=== PATIENT | female | born 1995 | race African-American/Black ===

== ENCOUNTER 2016-10-14 02:01 | Emergency (ER) | payer OTHER ==
[~2016-10-14] VITALS: Ht 154.9 cm; Wt 47.0 kg
[2016-10-14 02:15] VITALS: BP 129/75; PULSE 75; RESP 16; TEMP 98.3; O2SAT 98
--- NOTE | 2016-10-14 02:36 | PD ---
HPI Chief Complaint: Laceration/Skin Injury Time Seen by Provider: 02:31 Travel History International Travel<30 days: No Contact w/Intl Traveler<30days: No Traveled to known affect area: No History of Present Illness HPI 21-year-old [id number] black female presents to emergency department for evaluation of a right forearm laceration which occurred at work today sometime around 10 PM. She states that she fell with a glass mug in her head which broke. The glass lacerated her right forearm. She continued to work this evening and comes in after her shift ends. She is up-to-date with immunizations. Pain is minimal. She does not feel any foreign body. She is requesting repair of the laceration. She states that she feels is "deep". PFSH Past Medical History Medical History: Denies Significant Hx Tetanus Vaccination: < 5 Years ?: Not LMP: IUD Past Surgical History Surgical History: No Previous Surgery Social History Alcohol Use: Yes Tobacco Use: Yes Allergies-Medications (Allergen,Severity, Reaction): Coded Allergies: No Known Allergies (Unverified , 10/14/16) Review of Systems Except as stated in HPI: all other systems reviewed are Neg Physical Exam Narrative GENERAL: This is a well-nourished, well-developed patient, in no apparent distress. SKIN: No rashes, ecchymoses or lesions. Warm and dry. HEAD: Atraumatic. Normocephalic. EYES: PERRL, EOMI, no discharge or injection. No scleral icterus. EARS: Clear NOSE: Nasal turbinates appear normal. THROAT: Mucosa pink and moist. Airway patent. NECK: Trachea midline. supple, moves head freely. LUNGS: Clear to auscultation. CV: Regular in rhythm. ABDOMEN: Soft nontender. EXT: No clubbing cyanosis or edema. Patient has a 1 cm laceration to the volar mid right forearm. No palpable foreign body noted. No obvious wound infection. No deep injury. She moves her fingers freely. 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 Neurovascularly intact. Data Data Last Documented VS Vital Signs Date Time Temp Pulse Resp B/P Pulse Ox O2 Delivery O2 Flow Rate FiO2 10/14/16 02:15 98.3 75 16 129/75 98 Orders Forearm (2vws) (10/14/16 02:29) Cephalexin (Keflex) (10/14/16 03:30) [facility] Medical Decision Making Medical Screen Exam Complete: Yes Emergency Medical Condition: Yes Medical Record Reviewed: Yes Interpretation(s) Right forearm: Very small flecks of glass foreign body. No large foreign body. Differential Diagnosis MDM: High Differential diagnoses: Fracture, sprain, strain, dislocation, contusion, neurovascular injury Narrative Course Patient's wound is cleansed by the nursing staff. X-ray performed there are very small flecks of glass in the wound. No large foreign body. The skin is closed with Dermabond. Patient given Keflex 500 mg by mouth. Procedures Procedure Narrative LACERATION LOCATION: Right forearm LENGTH: 1 cm NUMBER OF STITCHES/ELÍAS: Not applicable REPAIR: The area of the laceration was prepped with Betadine and sterilely draped. The wound was copiously irrigated and explored without evidence of foreign body, tendon injury or neurovascular injury. The wound was closed using Dermabond. This was a supple single layer repair. A sterile dressing was applied. The patient was advised to keep the dressing clean and dry. Patient tolerated the procedure well. Diagnosis Primary Impression: Laceration of right forearm Patient Instructions: General Instructions Additional Instructions: Rest. Elevation. Tylenol and Advil for pain. Keep clean and dry. Dermabond instructions. Keflex. Follow-up with a medical doctor in one week. Return to the ER if any problems. Med/Other Pt SpecificInfo: Prescription(s) given, No Meds Exist/No RX given , Wound Care Scripts Cephalexin (Keflex)500 Mg [id number] Mg PO Q6H #20 CAP Prov:Ansley Bocanegra MD 10/14/16 Disposition: 01 DISCHARGE HOME Condition: Stable Nic Jaquez Oct 14, 2016 02:36
[2016-10-14] MEDS ORDERED: CEPH-460 PO (03:19)
[2016-10-14] MEDS ORDERED: CEPHALEXIN MONOHYDRATE 500 MG CAP PO ONE (03:30)
--- NOTE | 2016-10-14 03:39 | RADRPT ---
EXAM DATE/TIME: 10/14/2016 03:03 [facility] COMPARISON: No previous studies available for comparison. INDICATIONS : Right mid shaft forearm pain with lacerations post trip and fall on glass. MEDICAL HISTORY : None. SURGICAL HISTORY : None. ENCOUNTER: Initial ACUITY: 1 day PAIN SCORE: 5/10 LOCATION: Right upper extremity FINDINGS: Two view examination of the right forearm demonstrates no evidence of fracture or dislocation. Bony mineralization is normal. The soft tissue structures are intact. Questionable radiopaque debris in t he radial soft tissues of the forearm. CONCLUSION: 1. Questionable fine radiopaque debris in the radial soft tissues of the forearm. 2. No fracture. Mickey Oscar MD on October 14, 2016 at 3:35 Board Certified Radiologist. This report was verified electronically.
== END 2016-10-14 03:55 | disposition home or self-care (01) ==
LOC: NEPB 02:01
DX: S51.811A Laceration without foreign body of right forearm, initial encounter (principal); W18.02XA Striking against glass with subsequent fall, initial encounter; Z72.0 Tobacco use
CPT/HCPCS: 12001; 73090